=== PATIENT | male | born 1995 | race Two or more races ===

== ENCOUNTER 2017-05-01 06:35 | Emergency (ER) | payer MEDICAID ==
[~2017-05-01] VITALS: Ht 175.3 cm; Wt 117.9 kg
[~2017-05-01 06:35] MED LIST: DIPH2.5T73 PO
[2017-05-01] MEDS ORDERED: PANTOPRAZOLE 40 MG TAB PO ONE (08:00)
[2017-05-01] MEDS ORDERED: ONDANSETRON ODT 4 MG TAB PO ONE (08:15)
[2017-05-01 08:24] LABS: Basophils # (auto) 0 uL; Basophils % (auto) 0.7 % (0.0-2.0); Eosinophils # (auto) 0.1 uL; Eosinophils % (auto) 1.4 % (0.0-7.0); Hematocrit 45.8 % (41.0-53.0); Hemoglobin 15.3 g/dL (13.5-17.5); Lymphocytes % (auto) 37.1 % (10.0-50.0); Mean Corpuscular Hemoglobin 28.7 pg (28.0-32.0); Mean Corpuscular Hgb Conc. 33.4 g/dL (32.0-36.0); Mean Corpuscular Volume 85.9 fL (80.0-100.0); Mean Platelet Volume 9.2 fL (6.9-10.8); Monocytes # (auto) 0.4 uL; Monocytes % (auto) 6.4 % (0.0-12.0); Neutrophils % (auto) 54.4 % (37.0-80.0); Platelet Count (auto) 223 10^3/uL (140-450); Red Cell Distribution Width 13.7 % (11.8-14.3); White Blood Cell 5.5 10^3/uL (4.4-10.8)
[2017-05-01 09:01] LABS: Albumin 3.9 g/dL (3.4-5.0); BUN/Creatinine Ratio 14.8; Bilirubin, Total 0.3 mg/dL (0.2-1.0); Calcium 8.6 mg/dL (8.5-10.1); Potassium 4.1 mmol/L (3.5-5.1); Total Protein 7.5 g/dL (6.4-8.2)
[2017-05-01 09:29] VITALS: BP 131/70
== END 2017-05-01 09:41 | disposition home or self-care (01) ==
LOC: ER 06:36
DX: K52.9 Noninfective gastroenteritis and colitis, unspecified (principal)
CPT/HCPCS: 36415; 74176; 80053; 82150; 83690; 85025; 99285; Q0162

== ENCOUNTER 2018-10-04 07:09 | Emergency (ER) | payer MEDICAID ==
[~2018-10-04] VITALS: Ht 177.8 cm; Wt 131.5 kg
[2018-10-04 07:27] VITALS: BP 143/93
== END 2018-10-04 09:31 | disposition home or self-care (01) ==
LOC: ER 07:09
DX: S16.1XXA Strain of muscle, fascia and tendon at neck level, initial encounter (principal); S39.012A Strain of muscle, fascia and tendon of lower back, initial encounter; W11.XXXA Fall on and from ladder, initial encounter; Y93.89 Activity, other specified; Y99.8 Other external cause status; Y92.89 Other specified places as the place of occurrence of the external cause
CPT/HCPCS: 72040; 72100

== ENCOUNTER 2019-07-22 15:05 | Emergency (ER) | payer MEDICAID ==
[~2019-07-22] VITALS: Ht 177.8 cm; Wt 120.2 kg
[2019-07-22 16:01] VITALS: BP 126/82
== END 2019-07-22 18:36 | disposition home or self-care (01) ==
LOC: ER 15:10
DX: M54.2 Cervicalgia (principal); R51 Headache

== ENCOUNTER 2019-10-08 19:08 | Emergency (ER) | payer MEDICAID ==
[~2019-10-08] VITALS: Ht 177.8 cm; Wt 129.3 kg
[2019-10-08 20:12] VITALS: BP 136/77
== END 2019-10-08 21:28 | disposition home or self-care (01) ==
LOC: ER 19:08
DX: M54.2 Cervicalgia (principal); M54.5 Low back pain; R51 Headache; R55 Syncope and collapse; M62.830 Muscle spasm of back; V89.2XXD Person injured in unspecified motor-vehicle accident, traffic, subsequent encounter
CPT/HCPCS: 70450; 72125; 72131